=== PATIENT | male | born 1980 | race Caucasian/White ===

== ENCOUNTER 2021-05-18 11:01 | Emergency (ER) | payer OTHER ==
[~2021-05-18] VITALS: Ht 172.7 cm; Wt 101.2 kg
[2021-05-18 11:22] VITALS: BP 140/73
--- NOTE | 2021-05-18 11:25 | NUR ---
AT BEDSIDE FOR EVAL.
[2021-05-18] MEDS ORDERED: CEPH500C2 PO (11:44)
[2021-05-18] MEDS ORDERED: SULF1TAB48 PO (11:44)
--- NOTE | 2021-05-18 12:05 | NUR ---
Patient discharged to home in stable condition. Written and verbal after care instructions given. Patient verbalizes understanding of instruction.
== END 2021-05-18 12:06 | disposition home or self-care (01) ==
LOC: ER 11:01
DX: L02.11 Cutaneous abscess of neck (principal)
CPT/HCPCS: 10060; 99283; A6407

== ENCOUNTER 2022-05-28 12:47 | Emergency (ER) | payer OTHER ==
[~2022-05-28] VITALS: Ht 170.2 cm; Wt 99.8 kg
[~2022-05-28 12:47] MED LIST: CEPH500C2 PO; SULF1TAB48 PO
--- NOTE | 2022-05-28 13:05 | NUR ---
BIBS FOR C/O BACK PAIN 06/17 X 1 MONTH, GOT WORSE AFTER GETTING UP YESTERDAY. WILL CONTINUE TO MONITOR THE PATIENT.
[2022-05-28] MEDS ORDERED: IBUPROFEN 600 MG TABLET PO ONE (13:30)
[2022-05-28] MEDS: SUMATRIPTAN SUCCINATE 25 MG TABLET PO ONE (13:54)
[2022-05-28] MEDS ORDERED: IBUPROFEN 600 MG TABLET ONE (13:56)
--- NOTE | 2022-05-28 14:06 | NUR ---
MOTRIN 600MG PO ONCE PER DR GRECO. THE ORDER IS READ BACK, VERIFIED. NOTED AND CARRIED OUT.
[2022-05-28] MEDS: IBUPROFEN 600 MG TABLET PO ONE (14:07)
[2022-05-28] MEDS ORDERED: CYCLOBENZAPRINE 10 MG TABLET ONE (14:46)
[2022-05-28] MEDS: CYCLOBENZAPRINE 10 MG TABLET PO ONE (14:48)
[2022-05-28] MEDS ORDERED: NAPR-1192 PO (15:37)
[2022-05-28] MEDS ORDERED: METH4TAB3 PO (15:37)
[2022-05-28] MEDS ORDERED: CYCL5TAB PO (15:37)
[2022-05-28 15:45] VITALS: BP 134/75
--- NOTE | 2022-05-28 15:45 | NUR ---
Patient discharged to home in stable condition. Written and verbal after care instructions given. Patient verbalizes understanding of instruction.
== END 2022-05-28 15:46 | disposition home or self-care (01) ==
LOC: ER 12:55
DX: M54.16 Radiculopathy, lumbar region (principal); M54.50 Low back pain, unspecified; Z60.2 Problems related to living alone; Z79.899 Other long term (current) drug therapy
CPT/HCPCS: 72131-TC; 73502